=== PATIENT | male | born 1960 | race Caucasian/White ===

== ENCOUNTER 2016-11-16 06:51 | Emergency (ER) | payer OTHER ==
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
[2016-11-16 08:45] VITALS: BP 133/86
== END 2016-11-16 08:46 | disposition home or self-care (01) ==
LOC: ER 06:51
DX: S40.022A Contusion of left upper arm, initial encounter (principal); M25.522 Pain in left elbow; M25.531 Pain in right wrist; M79.642 Pain in left hand; V09.9XXA Pedestrian injured in unspecified transport accident, initial encounter
CPT/HCPCS: 99284; 73090; 73130; L3908

== ENCOUNTER 2018-02-22 09:16 | Emergency (ER) | payer SELFPAY ==
--- NOTE | 2018-02-22 09:50 | RADIOLOGY REPORT (SQ) ---
EXAM DESCRIPTION: ANKLE RIGHT COMPLETE COMPLETED DATE/TIME: 02/22/2018 9:41 am REASON FOR STUDY: twisted ankle having pain COMPARISON: None. NUMBER OF VIEWS: Three views. TECHNIQUE: AP, lateral, and oblique radiographic images acquired of the right ankle. LIMITATIONS: None. FINDINGS: MINERALIZATION: Normal. BONES: On the oblique view of the ankle there appears to be a fracture through the proximal aspect of the 2nd metatarsal. Correlation with foot films is recommended. JOINTS: There is a small joint effusion. SOFT TISSUES: There is bilateral soft tissue swelling. OTHER: No other significant finding. IMPRESSION: 1. Soft tissue swelling with joint effusion. 2. On the obliques view there appears to be a fracture of the proximal 2nd metatarsal. This is not seen in the lateral or AP film. Clinical correlation is needed. TECHNICAL DOCUMENTATION: JOB ID: [id number] [employer]- All Rights Reserved Reading location - IP/workstation name: [email or web address]
[2018-02-22] MEDS ORDERED: OXYCODONE-ACETAMINOPHEN 5-325 MG TABLET PO ONE (10:02)
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
--- NOTE | 2018-02-22 10:25 | RADIOLOGY REPORT (SQ) ---
EXAM DESCRIPTION: FOOT RIGHT COMPLETE COMPLETED DATE/TIME: 02/22/2018 10:13 am REASON FOR STUDY: ankle/foot injury COMPARISON: None. NUMBER OF VIEWS: Three views. TECHNIQUE: AP, lateral and oblique radiographic images acquired of the right foot. LIMITATIONS: None. FINDINGS: MINERALIZATION: Normal. BONES: No acute fracture or dislocation. No worrisome bone lesions. JOINTS: No effusions. SOFT TISSUES: No soft tissue swelling. No foreign body. OTHER: No other significant finding. IMPRESSION: NEGATIVE STUDY OF THE RIGHT FOOT. NO RADIOGRAPHIC EVIDENCE OF ACUTE INJURY. TECHNICAL DOCUMENTATION: JOB ID: [id number] [email or web address]- All Rights Reserved Reading location - IP/workstation name: [email or web address]
[2018-02-22 11:08] VITALS: BP 154/96
== END 2018-02-22 11:27 | disposition home or self-care (01) ==
LOC: ER 09:16
PROC: 2W3QX1Z Immobilization of Right Lower Leg using Splint (ICD-10-PCS; principal; 2018-02-22)
DX: S99.921A Unspecified injury of right foot, initial encounter (principal); M25.471 Effusion, right ankle; M79.671 Pain in right foot; M25.571 Pain in right ankle and joints of right foot; M79.89 Other specified soft tissue disorders; X50.1XXA Overexertion from prolonged static or awkward postures, initial encounter; I10 Essential (primary) hypertension
CPT/HCPCS: 99283

== ENCOUNTER 2018-04-13 12:57 | Emergency (ER) | payer SELFPAY ==
[2018-04-13] MEDS ORDERED: LOPERAMIDE HCL 2 MG CAPSULE PO ONE (14:35)
[2018-04-13] MEDS ORDERED: ONDANSETRON 4 MG TAB.RAPDIS PO ONE (14:35)
--- NOTE | 2018-04-13 14:48 | ER Document Report ---
ED General - General Chief Complaint: Nausea/Vomiting/Diarrhea Stated Complaint: NAUSEA/VOMITING Time Seen by Provider: 04/13/18 14:31 Mode of Arrival: Ambulatory Information source: Patient, [facility] Records Notes: This 58-year-old male patient comes emergency room with a 2-day history of nausea vomiting diarrhea and URI symptoms to include a nonproductive cough and sneezing. He reports a temperature of 101 yesterday. He did not get a flu shot this year. He states the primary problem at this time is the diarrhea. TRAVEL OUTSIDE OF THE [place] IN LAST 30 DAYS: No - Related Data Allergies/Adverse Reactions: No Known Allergies Allergy (Verified 02/22/18 09:17) Past Medical History - General Information source: Patient - Social History Smoking Status: Former Smoker Cigarette use (# per day): No - Quit 30 years ago Chew tobacco use (# tins/day): No Smoking Education Provided: No Frequency of alcohol use: None Drug Abuse: None Lives with: Family Family History: Reviewed & Not Pertinent Patient has suicidal ideation: No Patient has homicidal ideation: No - Past Medical History Cardiac Medical History: Reports: Hx Hypertension Past Surgical History: Reports: Other - Tracheostomy at 4 years old for a bronchopneumonia Review of Systems - Review of Systems Constitutional: Fever EENT: Nose congestion, Nose discharge Cardiovascular: No symptoms reported Respiratory: Cough. denies: Sputum Gastrointestinal: Diarrhea, Nausea, Vomiting Genitourinary: No symptoms reported Musculoskeletal: No symptoms reported Skin: No symptoms reported Hematologic/Lymphatic: No symptoms reported Neurological/Psychological: No symptoms reported Physical Exam - Vital signs Vitals: Temp Pulse Resp BP Pulse Ox 98.2 F 87 20 149/87 H 96 04/13/18 13:07 04/13/18 13:07 04/13/18 13:07 04/13/18 13:07 04/13/18 13:07 Interpretation: Normal - General General appearance: Appears well, Alert In distress: None - HEENT Head: Normocephalic, Atraumatic Eyes: Normal Pupils: PERRL Nasal: Other - Some nasal congestion Pharynx: Normal Neck: Normal - Respiratory Respiratory status: No respiratory distress Breath sounds: Normal - Cardiovascular Rhythm: Regular Heart sounds: Normal auscultation Murmur: No - Abdominal Inspection: Obese Bowel sounds: Normal Tenderness: Nontender - Back Back: Normal - Extremities General upper extremity: Normal inspection General lower extremity: Normal inspection - Neurological Neuro grossly intact: Yes - Psychological Associated symptoms: Normal affect, Normal mood - Skin Skin Temperature: Warm Skin Moisture: Dry Skin Color: Normal Course - Re-evaluation Re-evalutation: 04/13/18 15:37 Influenza A and B test is negative. 04/13/18 15:56 Patient states he does feel much better after the Zofran. - Vital Signs Vital signs: Temp Pulse Resp BP Pulse Ox 98.2 F 87 20 149/87 H 96 04/13/18 13:07 04/13/18 13:07 04/13/18 13:07 04/13/18 13:07 04/13/18 13:07 Discharge - Discharge Clinical Impression: Viral syndrome, Nausea, vomiting and diarrhea, Viral upper respiratory tract infection with cough Condition: Stable Disposition: HOME, SELF-CARE Additional Instructions: Viral Syndrome: The physician has diagnosed a viral infection. Viruses not only cause "colds," but can cause many different symptoms including generalized aching, fever, headache, cough, diarrhea, nausea, vomiting, and fatigue. The treatment, for the most part, is simply relief of symptoms. This means that antibiotics are usually not given. Rest, fluids, pain medications and, occasionally, medication for the specific symptoms that are most bothersome will be prescribed. Use good handwashing to avoid passing the virus to others. Shared toys should be cleaned with disinfectant. Clean the toilets, sinks, and counter surfaces in bathrooms. Launder clothing in hot water. Contact the physician if you develop any new or unusual symptoms such as severe headache, stiff neck, high fever, chest pain, productive cough, or shortness of breath. You should be rechecked if you don't see marked improvement within seven to 10 days. Take medications as prescribed for nausea and vomiting. Drink cool clear liquids. Take Imodium-AD or Pepto-Bismol for the diarrhea if needed. Get plenty of rest. Follow-up with a local medical doctor if not improving. RETURN TO THE EMERGENCY ROOM IF ANY NEW OR WORSENING SYMPTOMS. Prescriptions: Ondansetron [Zofran Odt 4 mg Tablet] 1 - 2 tab PO Q4H #10 tab.rapdis Forms: Return to Work
[2018-04-13 15:21] LABS: A TYPE INFLUENZA AG NEGATIVE (NEGATIVE); B INFLUENZA AG NEGATIVE (NEGATIVE)
[2018-04-13 16:05] VITALS: BP 148/80
== END 2018-04-13 16:08 | disposition home or self-care (01) ==
LOC: ER 12:57
DX: R19.7 Diarrhea, unspecified (principal); R11.2 Nausea with vomiting, unspecified; J06.9 Acute upper respiratory infection, unspecified; B97.89 Other viral agents as the cause of diseases classified elsewhere; R05 Cough; R06.7 Sneezing; R50.9 Fever, unspecified; R09.81 Nasal congestion; Z87.891 Personal history of nicotine dependence
CPT/HCPCS: 99284; 87804; S0119